=== PATIENT | male | born 1940 | race Caucasian/White ===

== ENCOUNTER 2019-11-29 10:49 | Emergency (ER) | payer MEDICARE, OTHER ==
--- NOTE | 2019-11-29 11:23 | RAD REPORT ---
EXAM DESCRIPTION: CT - Head Brain Wo Cont - 11/29/2019 11:16 am CLINICAL HISTORY: Headache COMPARISON: None. TECHNIQUE: Computed axial tomography of the head was obtained. IV contrast was not requested. All CT scans are performed using dose optimization technique as appropriate and may include automated exposure control or mA/KV adjustment according to patient size. FINDINGS: An intracranial bleed is not seen . The ventricles are normal in caliber. A roman cisterna magna is suspected. Fluid within the sinuses/ mastoids is not seen. IMPRESSION: No acute intracranial abnormality is seen. If patient's symptoms persist MRI of the bra in would be recommended.
--- NOTE | 2019-11-29 11:30 | ER ---
Nurse's Notes [facility] [place] Name: Laci Bowers Age: 79 yrs Sex: Male : 1940 Arrival Date: 11/29/2019 Time: 10:51 Bed 19 Private MD: Diagnosis: Headache Presentation: 11/28 10:59 Chief complaint: Patient states: started a new medication Hydralazine 50 mg PO BID on sv Tuesday and 3 days ago started with no appetite and 2 days ago started a headache. No OTC meds taken for GREWAL. Coronavirus screen: Client denies travel out of the [place] in the last 14 days. At this time, the client does not indicate any symptoms associated with coronavirus-19. Ebola Screen: No symptoms or risks identified at this time. Initial Sepsis Screen: Does the patient meet any 2 criteria? No. Patient's initial sepsis screen is negative. Does the patient have a suspected source of infection? No. Patient's initial sepsis screen is negative. Risk Assessment: Do you want to hurt yourself or someone else? Patient reports no desire to harm self or others. Onset of symptoms was November 27, 2019. 10:59 Method Of Arrival: Ambulatory sv 10:59 Acuity: RAKAN 3 sv Triage Assessment: 11:02 General: Appears in no apparent distress. comfortable, well groomed, well developed, sv Behavior is calm, cooperative, appropriate for age. Pain: Complains of pain in face. Neuro: Level of Consciousness is awake, alert, obeys commands, Oriented to person, place, time, situation, Moves all extremities. Full function Gait is steady, Speech is normal, Reports headache. Respiratory: Respiratory effort is even, unlabored, Respiratory pattern is regular, symmetrical. Derm: Skin is pink, warm \T\ dry. Musculoskeletal: Range of motion: intact in all extremities. Historical: - Allergies: 11:01 No Known Allergies; sv - PMHx: 11:01 Hypertension; sv - PSHx: 11:01 Appendectomy; Vasectomy; sv - Immunization history:: Adult Immunizations up to date. - Family history:: not pertinent. - Social history:: Smoking status: . - Hospitalizations: : No recent hospitalization is reported. Screenin:02 Abuse screen: Denies threats or abuse. Denies injuries from another. Nutritional sv screening: No deficits noted. Tuberculosis screening: No symptoms or risk factors identified. Fall Risk None identified. Assessment: 11:57 Reassessment: Patient appears in no apparent distress at this time. No changes from sv previously documented assessment. Patient and/or family updated on plan of care and expected duration. Pain level reassessed. Patient is alert, oriented x 3, equal unlabored respirations, skin warm/dry/pink. Vital Signs: 10:59 BP 129 / 99; Pulse 79; Resp 16; Temp 97.7; Pulse Ox 97% ; Weight 97.07 kg; Height 5 ft. sv 10 in. (177.80 cm); 10:59 Body Mass Index 30.71 (97.07 kg, 177.80 cm) sv Juan Coma Score: 11:27 Eye Response: spontaneous(4). Verbal Response: oriented(5). Motor Response: obeys rn commands(6). Total: 15. ED Course: 10:51 Patient arrived in ED. ds1 10:55 Elizabeth Shafer RN is Primary Nurse. sv 10:59 Chuy Morgan MD is Attending Physician. rn 11:01 Triage completed. sv 11:01 Arm band placed on. sv 11:02 ED physician to see patient. sv 11:02 Patient has correct armband on for positive identification. Bed in low position. Call sv light in reach. Pulse ox on. NIBP on. Door closed. Head of bed elevated. 11:16 CT Head Brain wo Cont In Process Unspecified. EDMS 11:20 Patient moved back from CT. sv 11:29 Jomar Turner DO is Referral Physician. rn 11:57 No provider procedures requiring assistance completed. Patient did not have IV access sv during this emergency room visit. Administered Medications: 11:36 Drug: TORadol 30 mg Route: IM; Site: right deltoid; sv 11:57 Follow up: Response: No adverse reaction sv Outcome: 11:29 Discharge ordered by . rn 11:57 Patient left the ED. sv 11:57 Discharged to home ambulatory. sv 11:57 Condition: stable 11:57 Discharge instructions given to patient, Instructed on discharge instructions, follow up and referral plans. Demonstrated understanding of instructions, follow-up care. Signatures: Dispatcher [employer] EDFL Elizabeth Shafer RN RN Mell Evans ds1 Morgan, Chuy, MD MD rn
--- NOTE | 2019-11-29 11:30 | EDPHYS ---
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 11:08 The patient complains of pain to the top of head and forehead. The patient describes rn the headache as aching. Onset: The symptoms/episode began/occurred 2 day(s) ago. Severity of symptoms: At its worst the pain was mild, in the emergency department the pain is unchanged. The patient has not experienced similar symptoms in the past. Reports just started taking hydralazine 3 days ago, headaches started 2 days ago, no hx of headache, no head injury, no focal neuro complaint, no vomiting, reports BP had been running high, which is why his doctor added new medication. Called his doctor but not open so came here. Not worst headache of his life. . Historical: - Allergies: 11:01 No Known Allergies; sv - PMHx: 11:01 Hypertension; sv - PSHx: 11:01 Appendectomy; Vasectomy; sv - Immunization history:: Adult Immunizations up to date. - Family history:: not pertinent. - Social history:: Smoking status: . - Hospitalizations: : No recent hospitalization is reported. ROS: 11:08 Constitutional: Negative for fever, chills, and weight loss, Eyes: Negative for injury, rn pain, redness, and discharge, Neck: Negative for injury, pain, and swelling, Cardiovascular: Negative for chest pain, palpitations, and edema, Respiratory: Negative for shortness of breath, cough, wheezing, and pleuritic chest pain, Abdomen/GI: Negative for abdominal pain, nausea, vomiting, diarrhea, and constipation, MS/Extremity: Negative for injury and deformity, Skin: Negative for injury, rash, and discoloration, Neuro: Negative for weakness, numbness, tingling, and seizure. Exam: 11:08 Constitutional: This is a well developed, well nourished patient who is awake, alert, rn and in no acute distress. Head/Face: Normocephalic, atraumatic. Neck: Supple, full range of motion without nuchal rigidity. No Meningismus. Cardiovascular: Regular rate and rhythm. No pulse deficits. Respiratory: No increased work of breathing, no retractions or nasal flaring. Skin: Warm, dry MS/ Extremity: Pulses equal, no cyanosis. Neurovascular intact. Full, normal range of motion. Equal circumference. Neuro: Awake and alert, GCS 15, oriented to person, place, time, and situation. Cranial nerves II-XII grossly intact. Motor strength 5/5 in all extremities. Sensory grossly intact. Cerebellar exam normal. Normal gait. Vital Signs: 10:59 BP 129 / 99; Pulse 79; Resp 16; Temp 97.7; Pulse Ox 97% ; Weight 97.07 kg; Height 5 ft. sv 10 in. (177.80 cm); 10:59 Body Mass Index 30.71 (97.07 kg, 177.80 cm) sv Juan Coma Score: 11:27 Eye Response: spontaneous(4). Verbal Response: oriented(5). Motor Response: obeys rn commands(6). Total: 15. MDM: 10:59 Patient medically screened. rn 11:27 Differential diagnosis: hypertensive headache, tension headache, vasomotor headache. rn Data reviewed: vital signs, nurses notes, radiologic studies, CT scan, and as a result, I will discharge patient. Counseling: I had a detailed discussion with the patient and/or guardian regarding: the historical points, exam findings, and any diagnostic results supporting the discharge/admit diagnosis, radiology results, the need for outpatient follow up, to return to the emergency department if symptoms worsen or persist or if there are any questions or concerns that arise at home. Response to treatment: the patient's symptoms have mildly improved after treatment, and as a result, I will discharge patient. Special discussion: I discussed with the patient/guardian in detail that at this point there is no indication for admission to the hospital. It is understood, however, that if the symptoms persist or worsen the patient needs to return immediately for re-evaluation. ED course: CT head no acute findings, will dc home as normal neuro exam, will hold his hydralazine, already has other anti-hypertensives and prn BP med, will call Dr. Turner for appt for medication change/evaluation. . 11/28 11:08 Order name: CT Head Brain wo Cont; Complete Time: 11:24 rn Administered Medications: 11:36 Drug: TORadol 30 mg Route: IM; Site: right deltoid; sv 11:57 Follow up: Response: No adverse reaction sv Disposition: 11/29/19 11:29 Discharged to Home. Impression: Headache. - Condition is Stable. - Discharge Instructions: General Headache Without Cause. - Medication Reconciliation Form, Thank You Letter, Antibiotic Education, Prescription Opioid Use form. - Follow up: Jomar Turner DO; When: As needed; Reason: Recheck today's complaints, Re-evaluation by your physician. - Problem is new. - Symptoms have improved. Signatures: Dispatcher [employer] EDElizabeth Floyd RN RN Chuy Dimas MD MD video journalist: (The following items were deleted from the chart) 11:57 11:29 11/29/2019 11:29 Discharged to Home. Impression: Headache. Condition is Stable. sv Forms are Medication Reconciliation Form, Thank You Letter, Antibiotic Education, Prescription Opioid Use. Follow up: Jomar Turner; When: As needed; Reason: Recheck today's complaints, Re-evaluation by your physician. Problem is new. Symptoms have improved. rn
[2019-11-29] MEDS ORDERED: KETOROLAC 30 MG/ML INJ ONE (11:43)
[2019-12-03 23:17] VITALS: BP 129/99; TEMP 97.7; O2SAT 97
== END 2019-11-29 11:57 | disposition home or self-care (01) ==
LOC: ER 10:49
DX: R51 Headache (principal); I10 Essential (primary) hypertension
CPT/HCPCS: 70450; 96372; 99284

== ENCOUNTER 2020-06-07 22:15 | Emergency (ER) | payer OTHER ==
[2020-06-08] MEDS ORDERED: predniSONE 20 MG TAB ONE (00:40)
[2020-06-08] MEDS ORDERED: FAMOTIDINE 20 MG TAB ONE (00:41)
--- NOTE | 2020-06-08 00:47 | EDPHYS ---
Physician Documentation [facility] Name: Laci Bowers Age: 80 yrs Sex: Male : 1940 Arrival Date: 06/07/2020 Time: 22:17 Bed 24 Private MD: ED Physician Iván Trinidad HPI: 06/08 00:12 This 80 yrs old Male presents to ER via Ambulatory with complaints of mh7 Allergic Reaction. 00:12 The patient presents with itching, rash, of the back and chest. Onset: The mh7 symptoms/episode began/occurred 3 day(s) ago. Associated signs and symptoms: Pertinent positives: rash, Pertinent negatives: abdominal pain, Altered mental status chest pain, dysphagia, fever, headache, Light headed nausea, shortness of breath, swelling, Syncope vomiting. Possible causes: COVID vaccination. At home the patient or guardian has treated the symptoms with topical antibiotic. Severity of symptoms: At their worst the symptoms were mild 2 day(s) ago, in the emergency department the symptoms are unchanged. Itchy rash to chest and back that started 3 days ago. Patient thinks it might be related to COVID vaccination he received.. Historical: - Allergies: 06/07 22:38 No Known Allergies; ca1 - Home Meds: 06/08 00:11 finasteride oral oral [Active]; sf - PMHx: 06/07 22:38 Hypertension; ca1 - PSHx: 22:38 Appendectomy; Vasectomy; ca1 - Immunization history:: Client reports receiving the 2nd dose of the Covid vaccine, Client reports receiving the 1st dose of the Covid vaccine, June 04, 2020 Pneumococcal vaccine is up to date, Flu vaccine is up to date. - Social history:: Smoking status: Patient denies any tobacco usage or history of. ROS: 06/08 00:12 Constitutional: Negative for fever, chills, and weight loss, Eyes: Negative for injury, mh7 pain, redness, and discharge, ENT: Negative for injury, pain, and discharge, Neck: Negative for injury, pain, and swelling, Cardiovascular: Negative for chest pain, palpitations, and edema, Respiratory: Negative for shortness of breath, cough, wheezing, and pleuritic chest pain, Abdomen/GI: Negative for abdominal pain, nausea, vomiting, diarrhea, and constipation, Back: Negative for injury and pain, : Negative for injury, bleeding, discharge, and swelling, MS/Extremity: Negative for injury and deformity, Neuro: Negative for headache, weakness, numbness, tingling, and seizure, Psych: Negative for depression, anxiety, suicide ideation, homicidal ideation, and hallucinations, Endocrine: Negative for neck swelling, polydipsia, polyuria, polyphagia, and marked weight changes, Hematologic/Lymphatic: Negative for swollen nodes, abnormal bleeding, and unusual bruising. Exam: 00:12 Constitutional: This is a well developed, well nourished patient who is awake, alert, mh7 and in no acute distress. Head/Face: Normocephalic, atraumatic. Eyes: Pupils equal round and reactive to light, extra-ocular motions intact. Lids and lashes normal. Conjunctiva and sclera are non-icteric and not injected. Cornea within normal limits. Periorbital areas with no swelling, redness, or edema. ENT: Nares patent. No nasal discharge, no septal abnormalities noted. Tympanic membranes are normal and external auditory canals are clear. Oropharynx with no redness, swelling, or masses, exudates, or evidence of obstruction, uvula midline. Mucous membranes moist. Neck: Trachea midline, no thyromegaly or masses palpated, and no cervical lymphadenopathy. Supple, full range of motion without nuchal rigidity, or vertebral point tenderness. No Meningismus. 00:12 Cardiovascular: Regular rate and rhythm with a normal S1 and S2. No gallops, murmurs, or rubs. Normal PMI, no JVD. No pulse deficits. Respiratory: Lungs have equal breath sounds bilaterally, clear to auscultation and percussion. No rales, rhonchi or wheezes noted. No increased work of breathing, no retractions or nasal flaring. Abdomen/GI: Soft, non-tender, with normal bowel sounds. No distension or tympany. No guarding or rebound. No evidence of tenderness throughout. 00:12 MS/ Extremity: Pulses equal, no cyanosis. Neurovascular intact. Full, normal range of motion. Neuro: Awake and alert, GCS 15, oriented to person, place, time, and situation. Cranial nerves II-XII grossly intact. Motor strength 5/5 in all extremities. Sensory grossly intact. Cerebellar exam normal. Normal gait. Psych: Awake, alert, with orientation to person, place and time. Behavior, mood, and affect are within normal limits. 00:12 Chest/axilla: Inspection: rash, of the diaphragm Palpation: is normal, Axilla: are normal, Lymph nodes: lymphadenopathy is not appreciated. 00:12 Back: pain, is absent, ROM is normal, normal spinal alignment noted, CVA tenderness, is absent, vertebral tenderness, is not appreciated, muscle spasm, is not present, mild diffuse rash with mild erythema. No induration, tenderness, swelling, petechiae, or purpura.. 00:12 Skin: rash a mild rash is noted, on the back and diaphragm, No petechiae, purpura, tenderness, swelling, or induration.. Vital Signs: 06/07 22:32 BP 167 / 93; Pulse 65; Resp 16 S; Temp 97.80(TE); Pulse Ox 99% on R/A; Weight 100.7 kg ca1 (R); Height 5 ft. 9 in. (175.26 cm) (R); Pain 0/10; 22:32 Body Mass Index 32.78 (100.70 kg, 175.26 cm) ca1 MDM: 06/08 00:12 Differential diagnosis: anaphylaxis, angioedema, non IgE mediated drug reaction [facility] urticaria. Data reviewed: vital signs, nurses notes. Data interpreted: Pulse oximetry: on room air is 99 %. Interpretation: normal. 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 00:45 Response to treatment: the patient's symptoms have markedly improved after treatment. [facility] 00:46 Patient medically screened. [facility] Administered Medications: 00:26 Drug: Pepcid 20 mg Route: PO; sf 01:22 Follow up: Response: No adverse reaction sf 00:27 Drug: predniSONE 40 mg Route: PO; sf 01:22 Follow up: Response: No adverse reaction Disposition: 06/08/20 00:46 Discharged to Home. Impression: Rash and other nonspecific skin eruption. - Condition is Stable. - Discharge Instructions: Rash, [id number]. - Prescriptions for Benadryl 25 mg Oral Capsule - take 1 capsule by ORAL route every 6 hours As needed; 20 tablet. Pepcid 20 mg Oral Tablet - take 1 tablet by ORAL route every 12 hours for 5 days; 10 tablet. Prednisone 20 mg Oral Tablet - take 2 tablet by ORAL route once daily for 5 days; 10 tablet. - Medication Reconciliation Form, Thank You Letter, Antibiotic Education, Prescription Opioid Use form. - Follow up: Private Physician; When: 1 - 2 days; Reason: Worsening of condition, Recheck today's complaints, Continuance of care, Re-evaluation by your physician. - Problem is new. - Symptoms have improved. Signatures: Susan Schultz RN RN ca1 Iván Trinidad MD MD 7 Silvestre Small RN RN sf Corrections: (The following items were deleted from the chart) 01:25 00:46 06/08/2020 00:46 Discharged to Home. Impression: Rash and other nonspecific skin sf eruption. Condition is Stable. Forms are Medication Reconciliation Form, Thank You Letter, Antibiotic Education, Prescription Opioid Use. Follow up: Private Physician; When: 1 - 2 days; Reason: Worsening of condition, Recheck today's complaints, Continuance of care, Re-evaluation by your physician. Problem is new. Symptoms have improved. mh7
--- NOTE | 2020-06-08 00:47 | ER ---
Nurse's Notes [facility] [place] Name: Laci Bowers Age: 80 yrs Sex: Male : 1940 Arrival Date: 06/07/2020 Time: 22:17 Bed 24 Private MD: Diagnosis: Rash and other nonspecific skin eruption Presentation: 06/07 22:32 Chief complaint: Patient states: had the 2nd dose of the Covid vaccine on the of ca1 June. Started having rashes across my chest and on the back the day after I got the 2nd shot. I had a little rash with the 1st shot but it was not this bad and it didn't last more than a day. This rash right now has been on for 3 days now. Put some prescribed antibiotic cream but it didn't do any good. Reports itching. Denies difficulty breathing. Coronavirus screen: Client denies travel out of the [place] in the last 14 days. At this time, the client does not indicate any symptoms associated with coronavirus-19. Ebola Screen: Patient negative for fever greater than or equal to 101.5 degrees Fahrenheit, and additional compatible Ebola Virus Disease symptoms Patient denies exposure to infectious person. Patient denies travel to an Ebola-affected area in the 21 days before illness onset. No symptoms or risks identified at this time. Initial Sepsis Screen: Does the patient meet any 2 criteria? No. Patient's initial sepsis screen is negative. Does the patient have a suspected source of infection? No. Patient's initial sepsis screen is negative. Risk Assessment: Do you want to hurt yourself or someone else? Patient reports no desire to harm self or others. Onset of symptoms was June 05, 2020. 22:32 Method Of Arrival: Ambulatory ca1 22:32 Acuity: RAKAN 4 ca1 06/08 00:10 Onset: The symptoms/episode began/occurred gradually, 3 day(s) ago. Anaphylaxis sf evaluation, no signs or symptoms of anaphylaxis were noted. Historical: - Allergies: 06/07 22:38 No Known Allergies; ca1 - Home Meds: 06/08 00:11 finasteride oral oral [Active]; sf - PMHx: 06/07 22:38 Hypertension; ca1 - PSHx: 22:38 Appendectomy; Vasectomy; ca1 - Immunization history:: Client reports receiving the 2nd dose of the Covid vaccine, Client reports receiving the 1st dose of the Covid vaccine, June 04, 2020 Pneumococcal vaccine is up to date, Flu vaccine is up to date. - Social history:: Smoking status: Patient denies any tobacco usage or history of. Screenin/07 00:10 Abuse screen: Denies threats or abuse. Denies injuries from another. Nutritional sf screening: No deficits noted. Tuberculosis screening: No symptoms or risk factors identified. Never had TB. Possible symptoms: None Risk factors: None. Fall Risk None identified. No fall in past 12 months (0 pts). No secondary diagnosis (0 pts). No IV (0 pts). Ambulatory Aid- None/Bed Rest/Nurse Assist (0 pts). Gait- Normal/Bed Rest/Wheelchair (0 pts) Mental Status- Oriented to own ability (0 pts). Total Dave Fall Scale indicates No Risk (0-24 pts). Assessment: 06/07 23:15 Reassessment: Patient appears in no apparent distress at this time. sg 06/08 00:10 General: Appears in no apparent distress. comfortable, Behavior is calm, cooperative, sf appropriate for age. Pain: Denies pain. Neuro: No deficits noted. Cardiovascular: No deficits noted. Respiratory: No deficits noted. Airway is patent Respiratory effort is even, unlabored, Respiratory pattern is regular, symmetrical, Breath sounds are clear bilaterally. Derm: Rash noted that is red, urticaria, on mid back area and diaphragm Reports itching. Vital Signs: 06/07 22:32 BP 167 / 93; Pulse 65; Resp 16 S; Temp 97.80(TE); Pulse Ox 99% on R/A; Weight 100.7 kg ca1 (R); Height 5 ft. 9 in. (175.26 cm) (R); Pain 0/10; 22:32 Body Mass Index 32.78 (100.70 kg, 175.26 cm) ca1 ED Course: 22:17 Patient arrived in ED. am4 22:36 Triage completed. ca1 22:38 Arm band placed on right wrist. ca1 23:48 Iván Trinidad MD is Attending Physician. mh7 23:51 Silvestre Small, STEPHANIE is Primary Nurse. sf 06/08 00:10 Patient has correct armband on for positive identification. Bed in low position. Call sf light in reach. Side rails up X 1. Door closed. Noise minimized. Visitors limited. Lights dimmed. Verbal reassurance given. 00:27 No provider procedures requiring assistance completed. Patient did not have IV access sf during this emergency room visit. Administered Medications: 00:26 Drug: Pepcid 20 mg Route: PO; sf 01:22 Follow up: Response: No adverse reaction sf 00:27 Drug: predniSONE 40 mg Route: PO; sf 01:22 Follow up: Response: No adverse reaction sf Outcome: 00:46 Discharge ordered by MD. ruelas 01:24 Discharged to home ambulatory. sf 01:24 Condition: stable 01:24 Discharge instructions given to patient, Instructed on discharge instructions, follow up and referral plans. medication usage, Demonstrated understanding of instructions, follow-up care, medications, Prescriptions given X 3. 01:25 Patient left the ED. sf Signatures: Silvestre Slater, RN STEPHANIE Susan Schultz RN RN [facility] Iván Trinidad MD MD mh7 Martinez, Ashley am4 Fitzpatrick, Steven, RN RN sf
== END 2020-06-08 01:25 | disposition home or self-care (01) ==
LOC: ER 22:15
DX: R21 Rash and other nonspecific skin eruption (principal); I10 Essential (primary) hypertension
CPT/HCPCS: 99283; J7512

== ENCOUNTER 2020-07-24 12:40 | Emergency (ER) | payer OTHER ==
--- NOTE | 2020-07-24 14:23 | RAD REPORT ---
EXAM DESCRIPTION: RAD - Chest Pa And Lat (2 Views) - 07/24/2020 2:12 pm CLINICAL HISTORY: CONGESTION Chest pain. COMPARISON: Chest Pa And Lat (2 Views) dated 08/17/2016; CHEST SINGLE VIEW dated 03/09/2009 FINDINGS: Rounded nodule in the right base shows long-term stability. The lungs are grossly clear. T he heart is upper limit normal size. No displaced fractures. IMPRESSION: No acute or concerning finding suspected.
--- NOTE | 2020-07-24 15:19 | EDPHYS ---
Physician Documentation [facility] Name: Laci Bowers Age: 80 yrs Sex: Male : 1940 Arrival Date: 07/24/2020 Time: 12:42 Bed 30 Private MD: ED Physician Chuy Morgan HPI: 07/24 13:14 This 80 yrs old Male presents to ER via Ambulatory with complaints of jr8 Congestion. 13:14 Patient presents for congestion and non-productive cough. He reports never having had jr8 this before. He said he started after he worked out on land doing fence work and yard work. . Historical: - Allergies: 12:48 No Known Allergies; ca1 - Home Meds: 12:48 finasteride Oral [Active]; ca1 12:49 tamsulosin 0.4 mg oral cp24 1 cap once daily [Active]; ca1 - PMHx: 12:48 Hypertension; ca1 - PSHx: 12:48 Appendectomy; Vasectomy; ca1 - Immunization history:: Client reports receiving the 2nd dose of the Covid vaccine, Client reports receiving the 1st dose of the Covid vaccine, Pneumococcal vaccine is up to date, Flu vaccine is up to date. - Social history:: Smoking status: Patient/guardian denies using tobacco, the patient reports quitting approximately 25 years ago. ROS: 13:16 Eyes: Negative for injury, pain, redness, and discharge, Cardiovascular: Negative for jr8 chest pain, palpitations, and edema, Abdomen/GI: Negative for abdominal pain, nausea, vomiting, diarrhea, and constipation, MS/Extremity: Negative for injury and deformity, Skin: Negative for injury, rash, and discoloration, Neuro: Negative for headache, weakness, numbness, tingling, and seizure. 13:16 ENT: Positive for sore throat. 13:16 Respiratory: Positive for cough, with no reported sputum, shortness of breath. 13:20 All other systems are negative. jr8 Exam: 13:20 Head/Face: Normocephalic, atraumatic. Chest/axilla: Normal chest wall appearance and jr8 motion. Nontender with no deformity. No lesions are appreciated. Cardiovascular: Regular rate and rhythm with a normal S1 and S2. No gallops, murmurs, or rubs. Normal PMI, no JVD. No pulse deficits. Abdomen/GI: Soft, non-tender, with normal bowel sounds. No distension or tympany. No guarding or rebound. No evidence of tenderness throughout. MS/ Extremity: Pulses equal, no cyanosis. Neurovascular intact. Full, normal range of motion. Neuro: Awake and alert, GCS 15, oriented to person, place, time, and situation. Cranial nerves II-XII grossly intact. Motor strength 5/5 in all extremities. Sensory grossly intact. Cerebellar exam normal. Normal gait. 13:20 Back: No spinal tenderness. No costovertebral tenderness. Full range of motion. Skin: Warm, dry with normal turgor. Normal color with no rashes, no lesions, and no evidence of cellulitis. 13:20 Respiratory: the patient does not display signs of respiratory distress, Respirations: normal, Breath sounds: wheezing: expiratory that is mild, is heard in the left upper lobe, right posterior upper lobe, right posterior middle lobe and right posterior lower lobe. Vital Signs: 12:46 BP 157 / 85; Pulse 63; Resp 17 S; Temp 97(TE); Pulse Ox 97% on R/A; Weight 99.79 kg ca1 (R); Height 5 ft. 9 in. (175.26 cm) (R); 14:20 BP 150 / 88; Pulse 53; Resp 18; Pulse Ox 98% on R/A; zb 15:39 BP 137 / 70; Pulse 56; Resp 16; Pulse Ox 98% on R/A; zb 12:46 Body Mass Index 32.49 (99.79 kg, 175.26 cm) ca1 MDM: 12:59 Patient medically screened. jr8 15:18 Data reviewed: vital signs, nurses notes, lab test result(s), radiologic studies, plain jr8 films. Data interpreted: Pulse oximetry: on room air is 98 %. Interpretation: normal. Counseling: I had a detailed discussion with the patient and/or guardian regarding: the historical points, exam findings, and any diagnostic results supporting the discharge/admit diagnosis, lab results, radiology results, the need for outpatient follow up, a family practitioner, to return to the emergency department if symptoms worsen or persist or if there are any questions or concerns that arise at home. 15:18 ED course: Will call pt with COVID results. Educated pt on Tessalon pearls he will be jr8 prescribed today. Educated Pt on what to look for to return to ED. Verbalized understanding. . 07/24 13:13 Order name: XRAY Chest Pa And Lat (2 Views); Complete Time: 14:51 jr8 Administered Medications: No medications were administered Disposition: 18:23 Co-signature as Attending Physician, Chuy Morgan MD. rn Disposition: 07/24/20 15:19 Discharged to Home. Impression: Cough, Acute bronchitis. - Condition is Stable. - Discharge Instructions: Acute Bronchitis, Adult, Cough, Adult. - Prescriptions for Prednisone 20 mg Oral Tablet - take 1 tablet by ORAL route once daily for 5 days; 5 tablet. Tessalon Perles 100 mg Oral Capsule - take 1 capsule by ORAL route every 8 hours As needed; 15 capsule. Albuterol Sulfate 90 mcg/actuation - inhale 1-2 puff by INHALATION route every 4-6 hours; 1 Inhaler. - Medication Reconciliation Form, Thank You Letter, Antibiotic Education, Prescription Opioid Use form. - Follow up: Private Physician; When: 2 - 3 days; Reason: Recheck today's complaints, Continuance of care, Re-evaluation by your physician. - Problem is new. - Symptoms have improved. Signatures: Dispatcher [employer] EDMS Chuy Morgan MD MD rn Roszak, Josh, PA PA jr8 Susan Scuhltz RN RN ca1 Brown, Zipporah, RN RN zb Corrections: (The following items were deleted from the chart) 15:40 15:19 07/24/2020 15:19 Discharged to Home. Impression: Cough; Acute bronchitis. zb Condition is Stable. Forms are Medication Reconciliation Form, Thank You Letter, Antibiotic Education, Prescription Opioid Use. Follow up: Private Physician; When: 2 - 3 days; Reason: Recheck today's complaints, Continuance of care, Re-evaluation by your physician. Problem is new. Symptoms have improved. jr8
--- NOTE | 2020-07-24 15:19 | ER ---
Nurse's Notes [facility] Name: Laci Bowers Age: 80 yrs Sex: Male : 1940 Arrival Date: 07/24/2020 Time: 12:42 Bed 30 Private MD: Diagnosis: Cough;Acute bronchitis Presentation: 07/24 12:46 Chief complaint: Patient states: Cough, Congestion, sore throat x 2 - 3 days, Also ca1 reports loss of appetite. Denies fever. Coronavirus screen: Client denies travel out of the [place] in the last 14 days. congestion, cough unrelated to allergies, runny nose, Client presents with at least one sign or symptom that may indicate coronavirus-19. Standard/surgical mask placed on the client. Provider contacted for isolation considerations. Ebola Screen: Patient negative for fever greater than or equal to 101.5 degrees Fahrenheit, and additional compatible Ebola Virus Disease symptoms Patient denies exposure to infectious person. Patient denies travel to an Ebola-affected area in the 21 days before illness onset. No symptoms or risks identified at this time. Initial Sepsis Screen: Does the patient meet any 2 criteria? No. Patient's initial sepsis screen is negative. Does the patient have a suspected source of infection? No. Patient's initial sepsis screen is negative. Risk Assessment: Do you want to hurt yourself or someone else? Patient reports no desire to harm self or others. Onset of symptoms was July 24, 2020. 12:46 Method Of Arrival: Ambulatory ca1 12:46 Acuity: RAKAN 4 ca1 13:13 Acuity: RAKAN 3 ca1 Historical: - Allergies: 12:48 No Known Allergies; ca1 - Home Meds: 12:48 finasteride Oral [Active]; ca1 12:49 tamsulosin 0.4 mg oral cp24 1 cap once daily [Active]; ca1 - PMHx: 12:48 Hypertension; ca1 - PSHx: 12:48 Appendectomy; Vasectomy; ca1 - Immunization history:: Client reports receiving the 2nd dose of the Covid vaccine, Client reports receiving the 1st dose of the Covid vaccine, Pneumococcal vaccine is up to date, Flu vaccine is up to date. - Social history:: Smoking status: Patient/guardian denies using tobacco, the patient reports quitting approximately 25 years ago. Screenin:52 Abuse screen: Denies threats or abuse. Denies injuries from another. Nutritional ca1 screening: No deficits noted. Tuberculosis screening: No symptoms or risk factors identified. Fall Risk None identified. Assessment: 12:52 General: Appears in no apparent distress. comfortable, Behavior is calm, cooperative, ca1 appropriate for age. Pain: Denies pain. Neuro: Level of Consciousness is awake, alert, obeys commands, Oriented to person, place, time, situation. Cardiovascular: Heart tones S1 S2 present Capillary refill < 3 seconds Patient's skin is warm and dry. Respiratory: Reports cough that is Airway is patent Respiratory effort is even, unlabored, Respiratory pattern is regular, symmetrical, Breath sounds are clear bilaterally. GI: EENT: Throat is clear. Derm: Skin is intact, is healthy with good turgor, Skin is pink, warm \T\ dry. Musculoskeletal: Circulation, motion, and sensation intact. Capillary refill < 3 seconds. 14:01 Reassessment: taken to x-ray. zb 15:39 Reassessment: Patient appears in no apparent distress at this time. Patient and/or zb family updated on plan of care and expected duration. Pain level reassessed. Patient is alert, oriented x 3, equal unlabored respirations, skin warm/dry/pink. d/c instructions given. pt ambulated out. gait steady and even. Vital Signs: 12:46 BP 157 / 85; Pulse 63; Resp 17 S; Temp 97(TE); Pulse Ox 97% on R/A; Weight 99.79 kg ca1 (R); Height 5 ft. 9 in. (175.26 cm) (R); 14:20 BP 150 / 88; Pulse 53; Resp 18; Pulse Ox 98% on R/A; zb 15:39 BP 137 / 70; Pulse 56; Resp 16; Pulse Ox 98% on R/A; zb 12:46 Body Mass Index 32.49 (99.79 kg, 175.26 cm) ca1 ED Course: 12:42 Patient arrived in ED. as 12:47 Triage completed. ca1 12:48 Arm band placed on right wrist. ca1 12:52 Susan Schultz, RN is Primary Nurse. ca1 12:52 Patient has correct armband on for positive identification. Bed in low position. Call ca1 light in reach. Side rails up X 1. Pulse ox on. NIBP on. 12:53 No provider procedures requiring assistance completed. ca1 12:59 Samy Jacobs PA is PHCP. jr8 12:59 Chuy Morgan MD is Attending Physician. jr8 14:01 COVID swab sent to lab. zb 14:03 XRAY Chest Pa And Lat (2 Views) In Process Unspecified. EDMS 15:40 Patient did not have IV access during this emergency room visit. zb Administered Medications: No medications were administered Outcome: 15:19 Discharge ordered by . jr8 15:40 Discharged to home ambulatory. zb 15:40 Condition: stable 15:40 Discharge instructions given to patient, Instructed on discharge instructions, follow up and referral plans. medication usage, Demonstrated understanding of instructions, follow-up care, medications, Prescriptions given X 3. 15:40 Patient left the ED. zb Signatures: Dispatcher [employer] EDWY Bam Rachelle as Samy Jacobs PA PA jr8 Susan Schultz RN RN ca1 Deepti Doyle RN RN zb Corrections: (The following items were deleted from the chart) 12:53 12:46 Chief complaint: Patient states: Cough, Congestion, sore throat x 2 - 3 days, ca1 Also reports loss of appetite. ca1 13:36 13:13 Acuity: RAKAN 2 ca1 ca1
[2020-07-24 15:49] VITALS: TEMP 97
[2020-07-24 15:50] VITALS: O2SAT 98
[2020-07-24 15:52] VITALS: BP 137/70
== END 2020-07-24 15:40 | disposition home or self-care (01) ==
LOC: ER 12:40
DX: J20.9 Acute bronchitis, unspecified (principal); Z20.822 Contact with and (suspected) exposure to COVID-19; I10 Essential (primary) hypertension; Z87.891 Personal history of nicotine dependence
CPT/HCPCS: 71046; 99283; U0003